=== PATIENT | male | born 1990 | race Two or more races ===

== ENCOUNTER 2023-12-08 07:18 | Outpatient (CLI) | payer OTHER | END 2023-12-08 07:27 | disposition home or self-care (01) | LOC: RAD 07:18 | PROVIDERS: ATTEND Orthopaedic Surgery | DX: S62.617D Displaced fracture of proximal phalanx of left little finger, subsequent encounter for fracture with routine healing (principal); M99.03 Segmental and somatic dysfunction of lumbar region; M99.04 Segmental and somatic dysfunction of sacral region; M99.05 Segmental and somatic dysfunction of pelvic region ==

== ENCOUNTER 2024-02-09 07:30 | Outpatient (CLI) | payer OTHER | END 2024-02-09 07:34 | disposition home or self-care (01) | LOC: RAD 07:30 | PROVIDERS: ATTEND Orthopaedic Surgery | DX: S62.617D Displaced fracture of proximal phalanx of left little finger, subsequent encounter for fracture with routine healing (principal) ==